=== PATIENT | male | born 1965 | race Caucasian/White ===

== ENCOUNTER 2016-08-27 11:58 | Emergency (ER) | payer BC, OTHER ==
[~2016-08-27] VITALS: Ht 182.9 cm; Wt 113.1 kg
[~2016-08-27 11:58] MED LIST: CHOL100010 PO; FERR325T51 PO; LOSA1TAB PO; OMEP40CA41 PO
[2016-08-27 12:04] VITALS: TEMP 36.8; Ht 182.9 cm; Wt 113.1 kg
[2016-08-27 13:34] VITALS: O2SAT 96
[2016-08-27 13:55] LABS: BASO % 0.2 %; BASO ABS # 0.02 K/uL (0-0.2); COMPLETE YES; EOS % 0.5 %; HEMATOCRIT 35.9 % (42-52); IG% 0.2 %; LYMPH % 12.8 %; MEAN CELL VOLUME 79.2 fL (80-100); MEAN CORPUSCULAR HEMOGLOBIN 24.9 pg (25-34); MEAN CORPUSCULAR HGB CONC 31.5 g/dl (32-36); MONO % 7.4 %; NEUT % 78.9 %; PLATELET COUNT 369 K/uL (130-400); RED BLOOD COUNT 4.53 M/uL (4.7-6.1); WHITE BLOOD COUNT 10.19 K/uL (4.8-10.8)
--- NOTE | 2016-08-27 13:58 | EMERGENCY ROOM VISIT NOTE ---
History Report prepared by Gene: Tika Spence Under the Supervision of: Dr. Lb Kline M.D. First contact with patient: 13:30 Chief Complaint: CHEST PAIN Stated Complaint: SEVERE CHEST PAIN, NUMBNESS IN ARM, CHEST AND FACE Nursing Triage Summary: having dizziness for the past several weeks. today started with pain in left side of chest "kind of goes into my left arm. left arm feels numb and tingly" hx of htn History of Present Illness The patient is a 51 year old male who presents to the Emergency Room with complaints of waxing and waning chest pain that began today prior to arrival. He currently rates his discomfort as an 8/10 in severity. The patient states that today he was at work when he developed chest pain. He notes pain in his left armpit. The patient additionally associates mouth, lip, and face numbness. The patient states that he follows with a medical examiner in the past, but is unsure of his last visit. He states that he had a previous heart catheterization and anemia. The patient denies taking any aspirin or nitro for his discomfort today. He states that over the last three weeks he has noticed lightheadedness and dizziness with change of position. Per records, the patient had a clean cardiac catheterization done by Dr. Wilson, Cardiology one year ago. The recommendation at this time was blood pressure management. Source of History: patient Onset: today prior to arrival Position: chest Symptom Intensity: 8/10 Timing: waxes/wanes Associated Symptoms: + numbness (lips, mouth, face) Note: Associated Symptoms: lightheadedness and dizziness, left armpit pain Review of Systems See HPI for pertinent positives & negatives. A total of 10 systems reviewed and were otherwise negative. Past Medical & Surgical Medical Problems: (1) Abdominal pain (2) Anemia (3) GIB (gastrointestinal bleeding) (4) Hx of headache (5) Hypertension Family History Heart disease Stroke Social History Smoking Status: Never Smoker Alcohol Use: occasionally Drug Use: none Marital Status: single Occupation Status: unemployed Current/Historical Medications Scheduled Losartan Potassium (Cozaar), 25 MG PO QAM Allergies Coded Allergies: No Known Allergies (Unverified , 08/27/16) Physical Exam Vital Signs Date Time Temp Pulse Resp B/P Pulse Ox O2 Delivery O2 Flow Rate FiO2 08/27/16 16:24 83 18 145/79 99 08/27/16 15:27 77 20 125/82 95 08/27/16 14:15 84 20 128/81 98 Room Air 08/27/16 13:42 74 08/27/16 13:34 96 Room Air 08/27/16 13:34 80 18 128/91 97 Room Air 08/27/16 12:04 36.8 87 18 144/88 97 Room Air Physical Exam GENERAL: Patient is a healthy-appearing well-nourished HEAD: Normocephalic atraumatic EYES: Ocular movements intact pupils equal and react to light OROPHARYNX mucous membranes are moist no exudates present no erythema or edema present NECK: Supple no nuchal rigidity CHEST: Good equal expansion LUNGS: Clear and equal to auscultation CARDIAC: Normal S1 and S2 ABDOMEN: Soft nontender no guarding BACK: No CVA tenderness EXTREMITIES: No pain upon palpation normal muscle strength in all groups no clubbing cyanosis or edema NEURO: Patient is following commands is answering questions appropriately. Alert and oriented x3 Cranial Nerves 2-12 grossly intact Medical Decision & Procedures ER Provider Diagnostic Interpretation: X-ray results as stated below per interpretation by me and the radiologist: SINGLE VIEW CHEST CLINICAL HISTORY: Atypical chest pain. FINDINGS: An AP, portable, upright chest radiograph is compared to study dated 07/19/2015. The examination is degraded by portable technique and apical lordotic positioning. The cardiomediastinal silhouette is unremarkable. A hiatal hernia is identified. The lungs and pleural spaces are clear. No pneumothorax is seen. The bony thorax is grossly intact. Surgical clips project over the right lower neck. IMPRESSION: 1. No acute cardiopulmonary abnormality. 2. Hiatal hernia. Electronically signed by: Moe Vasquez M.D. 08/27/2016 2:34 PM Dictated Date/Time: 08/27/2016 2:33 PM Laboratory Results 08/27/16 13:40 Red Blood Count 4.53, Mean Corpuscular Volume 79.2, Mean Corpuscular Hemoglobin 24.9, Mean Corpuscular Hemoglobin Concent 31.5, Mean Platelet Volume 9.0, Neutrophils (%) (Auto) 78.9, Lymphocytes (%) (Auto) 12.8, Monocytes (%) (Auto) 7.4, Eosinophils (%) (Auto) 0.5, Basophils (%) (Auto) 0.2, Neutrophils # (Auto) 8.05, Lymphocytes # (Auto) 1.30, Monocytes # (Auto) 0.75, Eosinophils # (Auto) 0.05, Basophils # (Auto) 0.02 08/27/16 13:40 Test 08/27/16 13:40 08/27/16 14:08 08/27/16 14:09 08/27/16 15:26 White Blood Count 10.19 K/uL (4.8-10.8) Red Blood Count 4.53 M/uL (4.7-6.1) Hemoglobin 11.3 g/dL (14.0-18.0) Hematocrit 35.9 % (42-52) Mean Corpuscular Volume 79.2 fL (80-100) Mean Corpuscular Hemoglobin 24.9 pg (25-34) Mean Corpuscular Hemoglobin Concent 31.5 g/dl (32-36) Platelet Count 369 K/uL (130-400) Mean Platelet Volume 9.0 fL (7.4-10.4) Neutrophils (%) (Auto) 78.9 % Lymphocytes (%) (Auto) 12.8 % Monocytes (%) (Auto) 7.4 % Eosinophils (%) (Auto) 0.5 % Basophils (%) (Auto) 0.2 % Neutrophils # (Auto) 8.05 K/uL (1.4-6.5) Lymphocytes # (Auto) 1.30 K/uL (1.2-3.4) Monocytes # (Auto) 0.75 K/uL (0.11-0.59) Eosinophils # (Auto) 0.05 K/uL (0-0.5) Basophils # (Auto) 0.02 K/uL (0-0.2) RDW Standard Deviation 45.8 fL (36.4-46.3) RDW Coefficient of Variation 15.8 % (11.5-14.5) Immature Granulocyte % (Auto) 0.2 % Immature Granulocyte # (Auto) 0.02 K/uL (0.00-0.02) Est Creatinine Clear Calc Drug Dose 89.3 ml/min Estimated GFR () 74.3 Estimated GFR (Non- 64.1 BUN/Creatinine Ratio 10.9 (10-20) Calcium Level 8.7 mg/dl (8.5-10.1) Total Bilirubin 0.5 mg/dl (0.2-1) Direct Bilirubin 0.1 mg/dl (0-0.2) Aspartate Amino Transf (AST/SGOT) 19 U/L (15-37) Alanine Aminotransferase (ALT/SGPT) 34 U/L (12-78) Alkaline Phosphatase 76 U/L (45-117) Total Creatine Kinase 309 U/L (39-308) Creatine Kinase MB 2.4 ng/ml (0.5-3.6) Creatine Kinase MB Ratio 0.8 (0-3.0) Troponin I < 0.015 ng/ml (0-0.045) Total Protein 7.9 gm/dl (6.4-8.2) Albumin 4.3 gm/dl (3.4-5.0) Lipase 215 U/L (73-393) Bedside D-Dimer 249 ng/mlFEU (0-450) Bedside Hemoglobin 12.6 g/dl (14.0-18.0) Bedside Hematocrit 37 % (42-52) Bedside Sodium 141 mEq/L (135-144) Bedside Potassium 3.9 mEq/L (3.3-5.0) Bedside Chloride 103 mEq/L (101-112) Bedside Total CO2 24 mEq/l (24-31) Anion Gap 19.0 mmol/L (16-25) Bedside Blood Urea Nitrogen 14 mg/dl (7-18) Bedside Creatinine 1.2 mg/dl (0.6-1.3) Bedside Glucose (other) 90 mg/dl (70-99) Bedside Ionized Calcium (Jenifer) 1.17 mmol/l (1.12-1.32) Bedside Troponin I 0.000 ng/ml (0-0.045) Labs reviewed by ED physician. Medications Administered Medications (Trade) Dose Ordered Sig/Cornelio Route Start Time Stop Time Status Last Admin Dose Admin Aspirin (Aspirin Chew) 324 mg NOW STAT PO 08/27/16 13:59 08/27/16 14:00 DC 08/27/16 14:14 324 MG ECG Indication: chest pain Rate (beats per minute): 76 Rhythm: normal sinus Findings: no acute ischemic change, no ectopy Change: Repeat EKG normal sinus rhythm, 79 beats per minute, no acute ischemia, no ectopy, no change from previous. ED Course 1352: Past medical records reviewed. The patient was evaluated in room C9. A complete history and physical examination was performed. 1359: Ordered Aspirin 324 mg PO. 1408: I reevaluated the patient and updated him on his lab findings. He states that he often uses Ibuprofen. 1546: I reevaluated the patient and he is resting comfortably. I discussed the exam findings with him and I discussed the treatment plan. He verbalized complete understanding and agreement. He is ready to go home. Medical Decision Differential diagnosis: Etiologies such as cardiac ischemia, aortic dissection, pulmonary embolism, pneumonia, pneumothorax, musculoskeletal, infections, pericarditis, myocarditis , esophageal rupture, gastrointestinal, as well as others were entertained. This is a 51-year-old male who presents emergency department complaining of left -sided chest pain. The patient had a cardiac catheterization one year ago that showed clean coronary arteries. I will also note that the patient was admitted for anemia and received blood transfusions. At that time he was taking a large amount of Advil. I questioned the patient on his Advil use again and he reports he is taking large amounts before he goes to bed. I reiterated the fact that it was felt he had GI bleed due to this when he was admitted. I strongly recommended based on the patient's hemoglobin today that he refrain from taking any more Advil. I recommended that he switch to Tylenol. I also strongly recommended and urged the patient to see gastroenterology. The patient follows up with several doctors including Merlin garrido. His CK is slightly elevated here however his MB and troponin as well as repeat troponin levels are normal. The patient had 2 EKGs performed in the emergency department. I do not feel at this chest pain is cardiac in nature. In addition the patient also has a normal d-dimer. Based on these findings I feel that the patient can be safely discharged home however strongly recommended follow-up with both cardiology as well as gastroenterology. Impression Primary Impression: Anemia Additional Impression: Precordial chest pain Scribe Attestation The scribe's documentation has been prepared under my direction and personally reviewed by me in its entirety. I confirm that the note above accurately reflects all work, treatment, procedures, and medical decision making performed by me. Departure Information Dispostion Home / Self-Care Referrals Greg Kat M.D. (PCP) Fidel Powers, Mekhi Mccoy MD Forms HOME CARE DOCUMENTATION FORM, IMPORTANT VISIT INFORMATION, School Instructions, Work Instructions Patient Instructions Chest Pain - [facility], ED Anemia Type Not Specified, My [facility] Additional Instructions Anemia: Follow up with Either Merlin Orosco or Dr Powers's office this week STOP taking advil Chest pain: Follow up with either Merlin garrido or Dr Bradley's office You have been examined and treated today on an emergency basis only. This is not a substitute for, or an effort to provide, complete comprehensive medical care. It is impossible to recognize and treat all injuries or illnesses in a single emergency department visit. It is therefore important that you follow up closely with Dr Kat. Call as soon as possible for an appointment. Thank you for your time and consideration. I look forward to speaking with you again soon. Please don't hesitate to call us if you have any questions. Problem Qualifiers Primary Impression: Anemia Anemia type: unspecified type Qualified Codes: D64.9 - Anemia, unspecified
[2016-08-27] MEDS ORDERED: ASPIRIN 81 MG CHEW PO STA (13:59)
[2016-08-27 14:15] LABS: ALT/SGPT 34 U/L (12-78); AST/SGOT 19 U/L (15-37); BLOOD UREA NITROGEN 14 mg/dl (7-18); BUN/CREATININE RATIO 10.9 (10-20); CALCIUM 8.7 mg/dl (8.5-10.1); CARBON DIOXIDE 25 mmol/L (21-32); CHLORIDE 107 mmol/L (98-107); GLUCOSE 88 mg/dl (70-99); POTASSIUM 3.9 mmol/L (3.5-5.1); SODIUM 140 mmol/L (136-145)
[2016-08-27 14:21] LABS: ALKALINE PHOSPHATASE 76 U/L (45-117); CKMB/CK RATIO 0.8 (0-3.0)
[2016-08-27 14:27] LABS: ISTAT CREATININE 1.2 mg/dl (0.6-1.3); ISTAT HEMOGLOBIN 12.6 g/dl (14.0-18.0); ISTAT IONIZED CALCIUM 1.17 mmol/l (1.12-1.32)
--- NOTE | 2016-08-27 14:35 | DIAGNOSTIC IMAGING REPORT ---
SINGLE VIEW CHEST CLINICAL HISTORY: Atypical chest pain. FINDINGS: An AP, portable, upright chest radiograph is compared to study dated 07/19/2015. The examination is degraded by portable technique and apical lordotic positioning. The cardiomediastinal silhouette is unremarkable. A hiatal hernia is identified. The lungs and pleural spaces are clear. No pneumothorax is seen. The bony thorax is grossly intact. Surgical clips project over the right lower neck. IMPRESSION: 1. No acute cardiopulmonary abnormality. 2. Hiatal hernia. Electronically signed by: Moe Vasquez M.D. 08/27/2016 2:34 PM Dictated Date/Time: 08/27/2016 2:33 PM
[2016-08-27 16:24] VITALS: BP 145/79; PULSE 83; O2SAT 99
== END 2016-08-27 16:24 | disposition home or self-care (01) ==
LOC: C.EDB 12:01 → C.EDC 16:24
DX: D64.9 Anemia, unspecified (principal); R07.2 Precordial pain; I10 Essential (primary) hypertension

== ENCOUNTER → 2017-02-19 | Outpatient (CLI) | payer OTHER ==
[~2017-02-19] MED LIST changes: -CHOL100010 PO; -FERR325T51 PO; -OMEP40CA41 PO
[2017-02-19 14:46] LABS: HEMATOCRIT 46.2 % (42-52); MEAN CELL VOLUME 89.9 fL (80-100); MEAN CORPUSCULAR HEMOGLOBIN 31.9 pg (25-34); MEAN CORPUSCULAR HGB CONC 35.5 g/dl (32-36); MEAN PLATELET VOLUME 9.8 fL (7.4-10.4); PLATELET COUNT 234 K/uL (130-400); RED BLOOD COUNT 5.14 M/uL (4.7-6.1); WHITE BLOOD COUNT 6.32 K/uL (4.8-10.8)
[2017-02-19 15:16] LABS: ALT/SGPT 31 U/L (12-78); AST/SGOT 16 U/L (15-37); BLOOD UREA NITROGEN 12 mg/dl (7-18); BUN/CREATININE RATIO 12.5 (10-20); CALCIUM 9.4 mg/dl (8.5-10.1); CARBON DIOXIDE 27 mmol/L (21-32); CHLORIDE 105 mmol/L (98-107); CHOLESTEROL 235 mg/dl (0-200); CREATININE 0.96 mg/dl (0.60-1.40); GLUCOSE 88 mg/dl (70-99); POTASSIUM 3.9 mmol/L (3.5-5.1); SODIUM 141 mmol/L (136-145)
[2017-02-19 15:20] LABS: ALB/GLOB RATIO 1.2 (0.9-2); ALKALINE PHOSPHATASE 64 U/L (45-117); CHOLESTEROL/HDL RATIO 5.9; HDL CHOLESTEROL 40 mg/dl; LDL CHOLESTEROL CALCULATED 159 mg/dl; TRIGLYCERIDES 179 mg/dl (0-150); VERY LOW DENSITY LIPOPROT CALC 36 mg/dl
[2017-02-20 06:48] LABS: ESTIMATED AVERAGE GLUCOSE 117 mg/dl; HA1C FLAG Normal (Normal)
== END | disposition home or self-care (01) ==
LOC: C.LAB1850 12:45
PROVIDERS: ATTEND Internal Medicine
DX: Z00.00 Encounter for general adult medical examination without abnormal findings (principal); I10 Essential (primary) hypertension; D64.9 Anemia, unspecified